=== PATIENT | female | born 1980 | race Caucasian/White ===

== ENCOUNTER 2024-08-27 17:28 | Emergency (ER) | payer SELFPAY ==
[2024-08-27] VITALS (7 sets, daily range): BP systolic 151–219; BP diastolic 96–128; PULSE 62–78; RESP 18; TEMP 36.7–36.8; O2SAT 97–100; BMI 23.3
--- NOTE | 2024-08-27 17:43 | PC.NURSE ---
DR JENSEN AT BEDSIDE
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
[2024-08-27] MEDS: ACETAMINOPHEN 500MG TAB 1000 MG PO (18:00)
[2024-08-27] MEDS: diazePAM 5MG TABLET 2.5 MG PO (18:00)
[2024-08-27] MEDS: LIDOCAINE 5% TRANSDERMAL PATCH 1 EACH TP (18:00)
[2024-08-27] MEDS: IBUPROFEN 400 MG TABLET 800 MG PO (18:00)
[2024-08-27] MEDS: hydroCHLOROthiazide 25MG TABLET 25 MG PO (19:38)
[2024-08-27] MEDS: LISINOPRIL 20MG TABLET 40 MG PO (19:38)
--- NOTE | 2024-08-27 19:46 | PC.NURSE ---
pt medicated per MAR. has no needs at this time.
== END 2024-08-27 20:27 | disposition home or self-care (01) ==
PROVIDERS: Emergency Provider Emergency Medicine
DX: S39.012A Strain of muscle, fascia and tendon of lower back, initial encounter (principal); S16.1XXA Strain of muscle, fascia and tendon at neck level, initial encounter; I10 Essential (primary) hypertension; M25.511 Pain in right shoulder; M54.2 Cervicalgia; V89.2XXA Person injured in unspecified motor-vehicle accident, traffic, initial encounter; Y93.89 Activity, other specified; Y92.410 Unspecified street and highway as the place of occurrence of the external cause
CPT/HCPCS: 72040; 72100; 73030; 99283